=== PATIENT | female | born 1995 | race African-American/Black ===

== ENCOUNTER 2022-09-18 12:34 | Emergency (ER) | payer MEDICAID, OTHER ==
[~2022-09-18] VITALS: Ht 160 cm; Wt 50.0 kg
[2022-09-18 13:03] VITALS: BP 117/76
== END 2022-09-18 14:28 | disposition home or self-care (01) ==
LOC: ER 12:34
DX: S09.8XXA Other specified injuries of head, initial encounter (principal); W22.8XXA Striking against or struck by other objects, initial encounter; Y93.89 Activity, other specified; Y92.89 Other specified places as the place of occurrence of the external cause; Y99.9 Unspecified external cause status
CPT/HCPCS: 99281